=== PATIENT | female | born 1980 | race Caucasian/White ===

== ENCOUNTER 2017-06-25 02:34 | Emergency (ER) | payer OTHER ==
[2017-06-25 05:13] VITALS: BP 97/66
== END 2017-06-25 05:13 | disposition left against medical advice (07) ==
LOC: ED 02:34
DX: Z53.21 Procedure and treatment not carried out due to patient leaving prior to being seen by health care provider (principal)

== ENCOUNTER 2017-09-24 12:53 | Emergency (ER) | payer OTHER ==
[2017-09-24 14:11] LABS: CARBON DIOXIDE 29.4 mmol/L (21-32); CHLORIDE SERUM 104 mmol/L (98-107); CREATININE SERUM 0.6 mg/dL (0.6-1.0); GFR1 > 60 mL/min; GLUCOSE SERUM 124 mg/dL (74-106); POTASSIUM SERUM 3.5 mmol/L (3.5-5.1); SODIUM SERUM 140 mmol/L (136-145)
[2017-09-24 14:13] LABS: BASOPHIL % 1.1 % (0-2); PLATELET COUNT 375 x10^3mcL (130-400)
[2017-09-24 14:14] LABS: RED CELL DISTRIBUTION WIDTH 20.3 % (11.5-14.5)
[2017-09-24 14:15] LABS: ALBUMIN 4.1 g/dL (3.4-5.0); ALKALINE PHOSPHATASE 66 U/L (46-116); ALT/SGPT 17 U/L (14-59); AST/SGOT 29 U/L (15-37); BILIRUBIN TOTAL 0.26 mg/dL (0.20-1.00)
[2017-09-24 14:16] LABS: TOTAL PROTEIN, SERUM 8.4 g/dL (6.4-8.2)
[2017-09-24 15:42] VITALS: BP 100/53
== END 2017-09-24 15:42 | disposition home or self-care (01) ==
LOC: ED 12:53
PROVIDERS: Emergency Medicine
DX: G43.909 Migraine, unspecified, not intractable, without status migrainosus (principal)
CPT/HCPCS: 36415; J1200; J2765

== ENCOUNTER 2018-03-28 07:31 | Emergency (ER) | payer OTHER ==
[~2018-03-28] VITALS: Ht 162.6 cm; Wt 48.1 kg
[2018-03-28 07:34] VITALS: Ht 162.6 cm; Wt 48.1 kg
[2018-03-28 08:33] LABS: CALCIUM 8.7 mg/dL (8.5-10.1); CARBON DIOXIDE 26.2 mmol/L (21-32); CHLORIDE SERUM 107 mmol/L (98-107); CREATININE SERUM 0.6 mg/dL (0.6-1.0); GFR1 > 60 mL/min; GLUCOSE SERUM 96 mg/dL (74-106); POTASSIUM SERUM 3.7 mmol/L (3.5-5.1); SODIUM SERUM 140 mmol/L (136-145)
[2018-03-28 08:37] LABS: ALBUMIN 3.8 g/dL (3.4-5.0); ALKALINE PHOSPHATASE 76 U/L (46-116); ALT/SGPT 18 U/L (14-59); AST/SGOT 20 U/L (15-37); BILIRUBIN TOTAL 0.3 mg/dL (0.20-1.00); TOTAL PROTEIN, SERUM 7.4 g/dL (6.4-8.2)
[2018-03-28 08:51] LABS: BASOPHIL % 1.5 % (0-2); PLATELET COUNT 297 x10^3mcL (130-400)
[2018-03-28 08:53] LABS: RED CELL DISTRIBUTION WIDTH 19.2 % (11.5-14.5)
[2018-03-28 09:51] VITALS: BP 104/71
== END 2018-03-28 09:51 | disposition home or self-care (01) ==
LOC: ED 07:31
PROVIDERS: Emergency Medicine
DX: G43.809 Other migraine, not intractable, without status migrainosus (principal); H53.8 Other visual disturbances; R20.2 Paresthesia of skin
CPT/HCPCS: J1885; J2060; Q0092

== ENCOUNTER 2019-02-21 22:09 | Emergency (ER) | payer OTHER ==
[~2019-02-21] VITALS: Ht 157.5 cm; Wt 50.8 kg
[2019-02-21 22:26] VITALS: Ht 157.5 cm; Wt 50.8 kg
[2019-02-21 23:18] LABS: BASOPHIL % 1.3 % (0-2); PLATELET COUNT 272 x10^3mcL (130-400)
[2019-02-21 23:19] LABS: RED CELL DISTRIBUTION WIDTH 18.2 % (11.5-14.5)
[2019-02-21 23:22] LABS: CALCIUM 8.9 mg/dL (8.5-10.1); CARBON DIOXIDE 27.2 mmol/L (21-32); CHLORIDE SERUM 106 mmol/L (98-107); CREATININE SERUM 0.6 mg/dL (0.6-1.0); GFR1 > 60 mL/min; GLUCOSE SERUM 91 mg/dL (74-106); POTASSIUM SERUM 3.8 mmol/L (3.5-5.1); SODIUM SERUM 141 mmol/L (136-145)
[2019-02-21 23:27] LABS: ALBUMIN 4.1 g/dL (3.4-5.0); ALKALINE PHOSPHATASE 79 U/L (46-116); ALT/SGPT 28 U/L (14-59); AST/SGOT 23 U/L (15-37); BILIRUBIN TOTAL 0.31 mg/dL (0.20-1.00); TOTAL PROTEIN, SERUM 7.8 g/dL (6.4-8.2)
[2019-02-22 00:41] VITALS: BP 104/75
== END 2019-02-22 00:41 | disposition home or self-care (01) ==
LOC: ED 22:09
PROVIDERS: Emergency Medicine
DX: F41.9 Anxiety disorder, unspecified (principal); R07.89 Other chest pain; R06.00 Dyspnea, unspecified; G43.909 Migraine, unspecified, not intractable, without status migrainosus
CPT/HCPCS: J2060; J7030